=== PATIENT | female | born 1995 | race American Indian/Alaskan Native ===

== ENCOUNTER 2018-11-09 08:25 | Emergency (ER) | payer MEDICAID ==
--- NOTE | 2018-11-09 08:54 | Emergency Department Report ---
ED General Adult HPI - General Chief complaint: High BP Stated complaint: HIGH BP Time Seen by Provider: 11/09/18 08:42 Source: patient Mode of arrival: Ambulatory Limitations: No Limitations - History of Present Illness Initial comments: Patient is a 23-year-old female who is presenting with concerns of elevated blood pressure. Patient states she is approximately 2 weeks status post stillborn . Patient was at 20 weeks gestation. At the time that she delivered a patient's blood pressure was 140/98. The decision was made to just continue to monitor the patient's blood pressure. The patient was given a volcanology teacher for follow-up but did not follow-up as ordered. Initially patient blood pressure was 141/95 the patient continued to be concerned and came to the emergency department today. Patient states that since her stillborn patient is a chest pressure this been constant. She has had episodes of shortness of breath as well and palpitations. Patient denies any nausea vomiting diarrhea fevers or chills at this time. - Related Data Previous Rx's Medication Instructions Recorded Last Taken Type ALPRAZolam [Xanax TAB] 0.25 mg PO BID PRN #10 tab 11/09/18 Unknown Rx Allergies Allergy/AdvReac Type Severity Reaction Status Date / Time No Known Allergies Allergy Unverified 11/09/18 08:36 ED Review of Systems ROS: Stated complaint: HIGH BP Other details as noted in HPI Comment: All other systems reviewed and negative ED Past Medical Hx - Past Medical History Previous Medical History?: Yes Additional medical history: Miscarriage 10-13-2018 - Surgical History Past Surgical History?: No - Social History Smoking Status: Never Smoker Substance Use Type: None - Medications Home Medications: Home Medications Medication Instructions Recorded Confirmed Last Taken Type ALPRAZolam [Xanax TAB] 0.25 mg PO BID PRN #10 tab 11/09/18 Unknown Rx ED Physical Exam - General Limitations: No Limitations General appearance: alert, in no apparent distress - Head Head exam: Present: atraumatic, normocephalic - Eye Eye exam: Present: normal appearance - ENT ENT exam: Present: mucous membranes moist - Neck Neck exam: Present: normal inspection - Respiratory Respiratory exam: Present: normal lung sounds bilaterally. Absent: respiratory distress, wheezes, rales, rhonchi - Cardiovascular Cardiovascular Exam: Present: regular rate, normal rhythm. Absent: systolic murmur, diastolic murmur, rubs, gallop - GI/Abdominal GI/Abdominal exam: Present: soft, normal bowel sounds. Absent: distended, tenderness, guarding, rebound - Extremities Exam Extremities exam: Present: normal inspection - Back Exam Back exam: Present: normal inspection - Neurological Exam Neurological exam: Present: alert, oriented X3 - Psychiatric Psychiatric exam: Present: normal affect, normal mood - Skin Skin exam: Present: warm, dry, intact, normal color. Absent: rash ED Course Vital Signs 11/09/18 11/09/18 08:32 09:39 Temperature 98.3 F 98.3 F Pulse Rate 75 64 Respiratory 20 18 Rate Blood Pressure 132/90 Blood Pressure 121/85 [Left] O2 Sat by Pulse 99 97 Oximetry ED Medical Decision Making - Lab Data Lab Results 11/09/18 Range/Units 09:03 Urine Color Yellow (Yellow) Urine Turbidity Slightly-cloudy (Clear) Urine pH 6.0 (5.0-7.0) Ur Specific [place] 1.014 (1.003-1.030) Urine Protein <15 mg/dl (Negative) mg/dL Urine Glucose (UA) Neg (Negative) mg/dL Urine Ketones Neg (Negative) mg/dL Urine Blood Mod (Negative) Urine Nitrite Neg (Negative) Urine Bilirubin Neg (Negative) Urine Urobilinogen < 2.0 (<2.0) mg/dL Ur Leukocyte Esterase Neg (Negative) Urine WBC (Auto) 1.0 (0.0-6.0) /HPF Urine RBC (Auto) 4.0 (0.0-6.0) /HPF U Epithel Cells (Auto) 9.0 (0-13.0) /HPF Urine Mucus Few /HPF - EKG Data -: EKG Interpreted by Nm - EKG Data 11/09/18 08:54 EKG shows a sinus rhythm at a rate of 69. Procious is normal intervals are normal. There are no ST segment elevations or depressions. Time of interpretation is a 55 - Medical Decision Making After talking to the patient and kind of relieving some of her fears and concerns patient's blood pressure actually normalized. Urinalysis was negative for ketone urea or proteinuria. The patient does not appear to have preeclampsia at this time. Patient will be continued to monitor blood pressure. The patient did have a stillborn at 20 weeks has been very upset. Patient's chest discomfort and slight elevation of her blood pressure likely secondary to this trauma. Patient started on Xanax and we will continue to watch her blood pressure without starting the patient on antihypertensives. Critical care attestation.: If time is entered above; I have spent that time in minutes in the direct care of this critically ill patient, excluding procedure time. ED Disposition Clinical Impression: Hypertensive urgency, Acute chest pain, Grief at loss of child Disposition: DC-01 TO HOME OR SELFCARE Is pt being admited?: No Does the pt Need Aspirin: No Condition: Stable Instructions: Chest Pain (ED), Hypertension (ED), Stress (ED), Post Traumatic Stress Disorder (ED) Referrals: TRISH JASMINE MD [Referring] - 3-5 Days Time of Disposition: 09:53
[2018-11-09 09:16] LABS: Bilirubin,Urine NEG (Negative); Blood,Urine MOD (Negative); Color,Urine Yellow (Yellow); Mucus,Urine FEW /HPF; Protein,Urine <15 mg/dL mg/dL (Negative); Urobilinogen,Urine < 2.0 mg/dL (<2.0)
[2018-11-09 09:44] VITALS: BP 121/85
== END 2018-11-09 10:01 | disposition home or self-care (01) ==
LOC: ED 08:25
DX: I16.0 Hypertensive urgency (principal); Z79.899 Other long term (current) drug therapy
CPT/HCPCS: 81001; 93005; 93010; 99283